=== PATIENT | female | born 1950 | race Caucasian/White ===

== ENCOUNTER 2019-06-18 11:35 | Observation (INO) ==
[~2019-06-18 11:35] MED LIST: Buffered Lidocaine 1% SYRIN 1 ml INTRADERM ONE; Famotidine IV 10 MG/ML 2 ml VIAL (20 mg) IV ONE; Lactated Ringers 1000 ml BAG 1,000 ML IV SCH
[2019-06-18] MEDS ORDERED: Famotidine IV 10 MG/ML 2 ml VIAL (20 mg) ONE (12:08)
[2019-06-18] MEDS ORDERED: Buffered Lidocaine 1% SYRIN 1 ml INTRADERM ONE (12:08)
[2019-06-18] MEDS ORDERED: ZOSYN 3.375 GM x ONE DOSE over 30 miuntes IVPB (14:00)
[2019-06-18] MEDS ORDERED: Midazolam 5 mg/5 ml VIAL 1 mg/ml 5 ml VIAL (5 mg) ONE (14:35)
[2019-06-18] MEDS ORDERED: fentaNYL 100 mcg/2 ml 50 MCG/ML VIAL ONE (14:35)
[2019-06-18] MEDS ORDERED: Succinylcholine 200 mg VIAL 20 mg/ml 10 ml VIAL (200 mg) ONE (14:37)
[2019-06-18] MEDS ORDERED: Dexamethasone IV 4 MG/ML VIAL 1 ml VIAL ONE (15:54)
[2019-06-18] MEDS ORDERED: Lidocaine 2% PF 5 ML VIAL ONE (15:54)
[2019-06-18] MEDS ORDERED: Ondansetron 4 mg VIAL 2 MG/ML 2 ml VIAL ONE (15:54)
[2019-06-18] MEDS ORDERED: Propofol 10 MG/ML 20 ML BTL ONE (15:54)
[2019-06-18] MEDS ORDERED: Ondansetron 4 mg VIAL 2 MG/ML 2 ml VIAL IV PRN (16:50)
[2019-06-18] MEDS ORDERED: Levalbuterol HFA INHALER MDI INH PRN (16:54)
[2019-06-18] MEDS ORDERED: GuaiFENesin DM 100 mg/10 mg in 5 ML UDC PO PRN (16:54)
[2019-06-18] MEDS ORDERED: Enoxaparin 40 MG/0.4 ML SYR SUBCUT SCH (17:00)
[2019-06-18] MEDS ORDERED: Mometasone 220 MCG MDI INH SCH (21:00)
[2019-06-19 05:44] LABS: Albumin 3.8 g/dL (3.2-5.2); Albumin/Globulin Ratio 1.5 (1-3); BUN/Creatinine Ratio 15.1 (8-20); Calcium 8.8 mg/dL (8.6-10.3); EGFR African American 95.9 (>60); EGFR Non-African American 79.3 (>60); Globulin 2.5 g/dL (2-4); Potassium 3.9 mmol/L (3.5-5.0); Total Bilirubin 8.2 mg/dL (0.2-1.0); Total Protein 6.3 g/dL (6.4-8.9)
[2019-06-19] MEDS ORDERED: DESVENLAFAXINE 25 MG PO SCH (09:00)
[2019-06-19 12:34] VITALS: BP 129/67
[2019-06-22 13:41] LABS: Immunoglobulin A 146 mg/dL (61 - 356); Immunoglobulin M 56 mg/dL (37 - 286)
[2019-06-22 14:22] LABS: Immunoglobulin G4 18.1 mg/dL
== END 2019-06-19 13:30 | disposition home or self-care (01) ==
LOC: OR 11:35 → SSU 16:50
PROVIDERS: ADMIT Internal Medicine; ATTEND Hospitalist